=== PATIENT | female | born 1950 | race Caucasian/White ===

== ENCOUNTER 2016-05-19 11:57 | Inpatient (IN) | payer MEDICARE, OTHER ==
[2016-05-19] VITALS (446 sets, daily range): BP systolic 140–176; BP diastolic 68–89; PULSE 56–65; TEMP 98–98.3; O2SAT 92–100
[~2016-05-19] VITALS: Ht 167.6 cm; Wt 127.8 kg
[2016-05-19] MEDS ORDERED: CELEBREX 200MG200 MG PO (14:27)
[2016-05-19] MEDS ORDERED: B-12 500 MCG PO (14:27)
[2016-05-19] MEDS ORDERED: LIDEX CR 15GM TP (14:28)
[2016-05-19] MEDS ORDERED: ULTRAM 50MG TAB50 MG PO (14:28)
[2016-05-19] MEDS ORDERED: OCUVITE1 TA1 PO (14:29)
[2016-05-19] MEDS ORDERED: CELEXA40 MG PO (14:29)
[2016-05-19] MEDS ORDERED: COREG 25MG25 MG/TAB PO (14:31)
[2016-05-19] MEDS ORDERED: AVAPRO300 M1 PO (14:31)
[2016-05-19] MEDS ORDERED: VITAMIN D 50,1.25 MG PO (14:32)
[2016-05-19] MEDS ORDERED: LASIX 20MG TABL20 MG PO (14:33)
[2016-05-19] MEDS ORDERED: ALDACTONE 25MG25 M1 PO (14:33)
[2016-05-19] MEDS ORDERED: GLUCOPHAGE XR500 M1 PO (14:34)
[2016-05-19] MEDS ORDERED: VITAMIN D32000 I1 PO (18:31)
[2016-05-19] MEDS ORDERED: COREG12.5 MG PO (18:31)
[2016-05-19] MEDS ORDERED: CELEXA 20MG20 MG/TAB PO (18:32)
[2016-05-20] VITALS (832 sets, daily range): BP systolic 131–187; BP diastolic 52–90; PULSE 58–65; TEMP 97.9–98.2; O2SAT 85–100
[2016-05-20 05:53] LABS: MEAN CELL VOLUME 93 fl (80.0-100.0); MEAN CORPUSCULAR HEMOGLOBIN 32 pg (27.0-31.0); MEAN CORPUSCULAR HGB CONC 34 g/dl (33.0-37.0); MEAN PLATELET VOLUME 11.3 fl (7.4-10.4); PLATELET COUNT 168 K/mm3 (130-400); REDCELL DISTRIBUTION WIDTH-CV 12.5 % (11.5-14.5); WHITE BLOOD COUNT 8.2 K/mm3 (4.8-10.8)
[2016-05-20 05:57] LABS: INR 1.2 (0.8-3.0); PROTHROMBIN TIME 13.3 SECONDS (9.7-12.8)
[2016-05-20 06:01] LABS: CALCIUM 9.2 mg/dL (8.4-10.2); CREATININE, serum 0.93 mg/dL (0.52-1.25); POTASSIUM 3.8 mmol/L (3.4-5.0)
[2016-05-21] VITALS (362 sets, daily range): BP systolic 130–163; BP diastolic 50–76; PULSE 54–62; TEMP 97.8–98.7; O2SAT 41–100
[2016-05-21 06:26] LABS: BASO % 0.1 % (0.0-2.0); EOS % 0.1 % (0-4.0); GRAN # 10.1 (1.4-6.5); GRAN % 81.4 % (42.2-75.2); HEMOGLOBIN 14.4 g/dl (12.5-16.0); LYMPH # 1.5 (1.2-3.4); LYMPH % 11.8 % (20.0-51.0); MEAN CELL VOLUME 92 fl (80.0-100.0); MEAN CORPUSCULAR HEMOGLOBIN 31 pg (27.0-31.0); MEAN CORPUSCULAR HGB CONC 34 g/dl (33.0-37.0); MEAN PLATELET VOLUME 10.9 fl (7.4-10.4); MONO # 0.7 (0.1-0.6); PLATELET COUNT 180 K/mm3 (130-400); RED BLOOD COUNT 4.58 M/mm3 (4.10-5.30); REDCELL DISTRIBUTION WIDTH-CV 12.1 % (11.5-14.5); WHITE BLOOD COUNT 12.4 K/mm3 (4.8-10.8)
[2016-05-21 06:33] LABS: CALCIUM 9.4 mg/dL (8.4-10.2); CREATININE, serum 0.87 mg/dL (0.52-1.25); POTASSIUM 4.1 mmol/L (3.4-5.0)
[2016-05-21] MEDS ORDERED: PLAVIX 75MG TAB75 MG PO (10:05)
== END 2016-05-21 10:53 | disposition home or self-care (01) | DRG 247 ==
LOC: IMCU 11:57
PROVIDERS: Internal Medicine; Internal Medicine Interventional Cardiology
PROC: B2111ZZ Fluoroscopy of Multiple Coronary Arteries using Low Osmolar Contrast (ICD-10-PCS; principal; 2016-05-20)
PROC: 027034Z Dilation of Coronary Artery, One Artery with Drug-eluting Intraluminal Device, Percutaneous Approach (ICD-10-PCS; 2016-05-20)
PROC: B2151ZZ Fluoroscopy of Left Heart using Low Osmolar Contrast (ICD-10-PCS; 2016-05-20)
PROC: 4A023N7 Measurement of Cardiac Sampling and Pressure, Left Heart, Percutaneous Approach (ICD-10-PCS; 2016-05-20)
DX: I25.119 Atherosclerotic heart disease of native coronary artery with unspecified angina pectoris (principal); I50.22 Chronic systolic (congestive) heart failure; I49.5 Sick sinus syndrome; I11.0 Hypertensive heart disease with heart failure; E11.9 Type 2 diabetes mellitus without complications; Z87.891 Personal history of nicotine dependence
CPT/HCPCS: 99223-AI; 99232-AI; 99238; C1725; C1760; C1769; C1874; C1887; C1894; C9600; J0583; J1650; J1815; J2250; J2930; J3010; Q9967

== ENCOUNTER → 2016-09-23 | Outpatient (CLI) | payer MEDICARE, OTHER ==
[~2016-09-23] MED LIST: ALDACTONE 25MG25 M1 PO; AVAPRO300 M1 PO; B-12 500 MCG PO; CELEBREX 200MG200 MG PO; CELEXA 20MG20 MG/TAB PO; CELEXA40 MG PO; COREG 25MG25 MG/TAB PO; COREG12.5 MG PO; GLUCOPHAGE XR500 M1 PO; LASIX 20MG TABL20 MG PO; LIDEX CR 15GM TP; OCUVITE1 TA1 PO; PLAVIX 75MG TAB75 MG PO; ULTRAM 50MG TAB50 MG PO; VITAMIN D 50,1.25 MG PO; VITAMIN D32000 I1 PO
== END ==
LOC: COL.RAD 12:25
DX: M25.511 Pain in right shoulder (principal); M19.011 Primary osteoarthritis, right shoulder; M85.811 Other specified disorders of bone density and structure, right shoulder; S43.401A Unspecified sprain of right shoulder joint, initial encounter; M25.411 Effusion, right shoulder; M75.111 Incomplete rotator cuff tear or rupture of right shoulder, not specified as traumatic

== ENCOUNTER → 2016-10-06 | Outpatient (CLI) | payer MEDICARE, OTHER | LOC: COL.RAD 12:57 | DX: M25.78 Osteophyte, vertebrae (principal) ==

== ENCOUNTER 2017-06-02 12:27 | Outpatient (CLI) | payer MEDICARE, OTHER ==
[~2017-06-02] VITALS: Ht 167.7 cm; Wt 139.0 kg
[2017-06-02] VITALS (10 sets, daily range): BP systolic 126–179; BP diastolic 58–89; PULSE 53–73; TEMP 97.6–98.1
[~2017-06-02 12:27] MED LIST changes: +VITAMIN D31000 I1 PO; -VITAMIN D32000 I1 PO
[2017-06-02] MEDS ORDERED: PERCOCET 325 MG1 TA2 PO (13:33)
[2017-06-02 13:54] LABS: HEMOGLOBIN 13.3 g/dl (12.5-16.0); MEAN CELL VOLUME 94 fl (80.0-100.0); MEAN CORPUSCULAR HEMOGLOBIN 31 pg (27.0-31.0); MEAN CORPUSCULAR HGB CONC 33 g/dl (33.0-37.0); PLATELET COUNT 157 K/mm3 (130-400); RED BLOOD COUNT 4.27 M/mm3 (4.10-5.30); REDCELL DISTRIBUTION WIDTH-CV 12.5 % (11.5-14.5)
[2017-06-02] MEDS ORDERED: LEVEMIR100 U/ML SQ (13:55)
[2017-06-02] MEDS ORDERED: CELEBREX 200MG200 MG PO (13:55)
[2017-06-02] MEDS ORDERED: COREG 3.123.125 MG/T PO (13:56)
[2017-06-02] MEDS ORDERED: TRUSOPT OCUMETE10 ML OU (13:57)
[2017-06-02] MEDS ORDERED: ASPIRIN E.C. 8181 MG PO (13:58)
[2017-06-02 14:05] LABS: CALCIUM 9.5 mg/dL (8.4-10.2); CREATININE, serum 0.77 mg/dL (0.52-1.25); INR 1.1 (0.8-3.0); POTASSIUM 4.1 mmol/L (3.4-5.0); PROTHROMBIN TIME 13.1 SECONDS (9.7-12.8)
[2017-06-02] MEDS ORDERED: COREG 6.256.25 MG/TA PO (15:45)
== END 2017-06-02 16:50 | disposition home or self-care (01) ==
LOC: COL.RAD 12:27
PROVIDERS: Internal Medicine Interventional Cardiology
DX: I34.0 Nonrheumatic mitral (valve) insufficiency (principal); I50.22 Chronic systolic (congestive) heart failure; I25.10 Atherosclerotic heart disease of native coronary artery without angina pectoris; I87.2 Venous insufficiency (chronic) (peripheral); Z87.891 Personal history of nicotine dependence; Z98.1 Arthrodesis status; Z98.890 Other specified postprocedural states
CPT/HCPCS: G9654; J2250; J2704

== ENCOUNTER 2018-02-27 09:53 | Day surgery (SDC) | payer MEDICARE, OTHER ==
[~2018-02-27] VITALS: Ht 167.7 cm; Wt 152.2 kg
[2018-02-27] VITALS (9 sets, daily range): BP systolic 89–1222; BP diastolic 59–83; PULSE 62–67; TEMP 97.4
[~2018-02-27 09:53] MED LIST changes: +ASPIRIN E.C. 8181 MG PO; +COREG 3.123.125 MG/T PO; +COREG 6.256.25 MG/TA PO; +ENTRESTO 49 MG1 EACH PO; +LEVEMIR100 U/ML SQ; +PERCOCET 325 MG1 TA2 PO; +ROXICODONE 55 MG/TAB PO; +TRUSOPT OCUMETE10 ML OU
[2018-02-27 11:11] LABS: HEMATOCRIT 34.9 % (37.0-47.0); HEMOGLOBIN 11.2 g/dl (12.5-16.0); MEAN CELL VOLUME 99 fl (80.0-100.0); MEAN CORPUSCULAR HEMOGLOBIN 32 pg (27.0-31.0); MEAN CORPUSCULAR HGB CONC 32 g/dl (33.0-37.0); MEAN PLATELET VOLUME 10.3 fl (7.4-10.4); PLATELET COUNT 151 K/mm3 (130-400); RED BLOOD COUNT 3.53 M/mm3 (4.10-5.30); REDCELL DISTRIBUTION WIDTH-CV 13.3 % (11.5-14.5)
[2018-02-27] MEDS ORDERED: ACTOS30 MG PO (11:11)
[2018-02-27] MEDS ORDERED: DESYREL 100MG100 MG PO (11:11)
[2018-02-27] MEDS ORDERED: TRULICITY0.75 MG/0. SQ (11:12)
[2018-02-27 11:17] LABS: INR 1.1 (0.8-3.0)
[2018-02-27 11:21] LABS: CREATININE, serum 1.63 mg/dL (0.52-1.25); POTASSIUM 4.8 mmol/L (3.4-5.0)
== END 2018-02-27 16:12 | disposition home or self-care (01) ==
LOC: COL.CAR 09:53
PROVIDERS: Internal Medicine Interventional Cardiology
DX: I25.10 Atherosclerotic heart disease of native coronary artery without angina pectoris (principal); R94.39 Abnormal result of other cardiovascular function study; E11.9 Type 2 diabetes mellitus without complications; E78.5 Hyperlipidemia, unspecified; I50.9 Heart failure, unspecified; Z79.4 Long term (current) use of insulin; Z79.02 Long term (current) use of antithrombotics/antiplatelets; Z79.82 Long term (current) use of aspirin; Z88.1 Allergy status to other antibiotic agents; Z88.8 Allergy status to other drugs, medicaments and biological substances; Z87.891 Personal history of nicotine dependence; Z84.1 Family history of disorders of kidney and ureter; Z80.9 Family history of malignant neoplasm, unspecified; Z82.49 Family history of ischemic heart disease and other diseases of the circulatory system
CPT/HCPCS: C8924; J1644; J2250; J3010; Q9957; Q9967

== ENCOUNTER 2018-11-21 19:17 | Inpatient (IN) | payer MEDICARE, OTHER ==
[~2018-11-21] VITALS: Ht 165.1 cm; Wt 161.1 kg
[~2018-11-21 19:17] MED LIST changes: +ACTOS30 MG PO; +DESYREL 100MG100 MG PO; +TRULICITY0.75 MG/0. SQ
--- NOTE | 2018-11-21 19:45 | NUR ---
To room 224 via EMS harvinderr[facility] from [facility]. Transferred with assist of 6. Oriented to room and policy. Admission assessment complete-see note. Right knee dressing with small amount of drainage noted-Gallito bandage/4x4s/ABDs. Elevated on pillow. Ice pack applied. NELA hose on when arrived. Denies pain at this time stating she had "pain medications at [facility]." Call light in reach, bed in low position/wheels locked. Will monitor.
[2018-11-21 20:06] VITALS: BP 123/57; PULSE 64; TEMP 98.1
--- NOTE | 2018-11-21 20:50 | NUR ---
Chadd Kramer CRNA in room to evaluate for anesthesia. Asked by this nurse if he would evaluate for IV placement-had been stuck seven times prior to arrival to [facility]. IV placed in left forearm, 20g, by Krista Kramer CRNA using ultrasound. Flushed without difficulty. re-enforced with chevron and extra tape. Wrapped with loose mike bandage. Tolerated procedure well.
--- NOTE | 2018-11-21 22:50 | NUR ---
[facility] what medications were taken prior to discharge this AM. Spoke to Nurse who faxed MAR and provided medications, date and time. Updated on Med rec accordingly
[2018-11-21 23:15] VITALS: BP 124/34; PULSE 71; TEMP 98
--- NOTE | 2018-11-21 23:40 | NUR ---
New orders received to insert carey cath. 16F inserted using sterile technique with immediate return of dark yellow clear urine. Tolerated well
[2018-11-22] VITALS (12 sets, daily range): BP systolic 117–147; BP diastolic 36–78; PULSE 59–85; TEMP 97.8–99.2
--- NOTE | 2018-11-22 | NUR ---
Assisted with CPAP mask. Adjusted to fit-states proper application but removes in sleep. Cardiopulm aware. O2 at 3l/NC instead.
--- NOTE | 2018-11-22 03:08 | NUR ---
Has slept since arrival. No C/O pain. right lower extremity repositioned on pillow several times-continues to externally rotate right leg. Ice pack applied several times but removes. Dressing remains with a small amount of drainage to mike. Call light within reach. Will monitor.
[2018-11-22 06:40] LABS: BASO % 0.2 % (0.0-2.0); EOS # 0.3 (0.0-0.7); EOS % 3.7 % (0-4.0); GRAN % 65.8 % (42.2-75.2); HEMOGLOBIN 10.4 g/dl (12.5-16.0); LYMPH # 1.6 (1.2-3.4); LYMPH % 17.1 % (20.0-51.0); MEAN CELL VOLUME 98 fl (80.0-100.0); MEAN CORPUSCULAR HEMOGLOBIN 31 pg (27.0-31.0); MEAN CORPUSCULAR HGB CONC 32 g/dl (33.0-37.0); MEAN PLATELET VOLUME 10.9 fl (7.4-10.4); MONO # 1.2 (0.1-0.6); MONO % 12.8 % (1.7-9.3); PLATELET COUNT 131 K/mm3 (130-400); RED BLOOD COUNT 3.33 M/mm3 (4.10-5.30); REDCELL DISTRIBUTION WIDTH-CV 13.8 % (11.5-14.5)
[2018-11-22 06:41] LABS: HEMATOCRIT 32.5 % (37.0-47.0)
--- NOTE | 2018-11-22 08:00 | NUR ---
PATIENT RESTING IN BED THIS MORNING. PATIENT IS A&OX4. VSS. PATIENT PALE IN COLORING. BOWEL SOUNDS ACTIVE ALL FOUR QUADRANTS. PATIENT IS NPO FOR SURGERY. PATIENT DENIES COMPLAINTS OF N/V. POSITIVE PEDAL PULSES EQUAL BILATERALLY. EDEMA TO RLE.JANELL DRESSING TO RIGHT KNEE AND IS CD&I. NELA HOSE TO BLE. HUNG CATHETER DRAINAGE YELLOW URINE TO HUNG BAG. LEFT FOREARM TO INT. CALL LIGHT WITHIN REACH. PATINT DENIES ANY OTHER NEEDS AT THIS TIME.
--- NOTE | 2018-11-22 09:51 | NUR ---
Initial visit; "Kristian" thanked Desk Editor for looking in on her, offering God's blessings and keeping her in Desk Editor's prayers.
--- NOTE | 2018-11-22 10:50 | NUR ---
PRE-OP FLUIDS HUNG AND CONNECTED TO LEFT FOREARM IV. PATIENT TAKEN TO PERIOP VIA BED BY VERNA MENG.
--- NOTE | 2018-11-22 13:00 | NUR ---
PATIENT ARRIVED TO ROOM 324 VIA BED FROM PACU. PATIENT IS DROWSY, BUT AROUSES TO NAME. VSS. NELA HOSE TO BLE. SCD TO LLE. CALL LIGHT WITHIN REACH. PRESENT AT THE BEDSIDE.
--- NOTE | 2018-11-22 14:29 | NUR ---
MAHOGANY met with the patient and patient's , Brain, to discuss discharge plan. The patient discharged yesterday, 11/21, from the [facility] after having a right TKA. She states that things were not going well. The patient lives in [place] with her . She reports needing assistance with ADLs and has a front wheeled walker. She states her has been helping her with ADLs. The patient's PCP is Dr. Aleks Palacios and she receives her medications from the [facility] in [place]. She reports no difficulties obtaining her meds. The patient does not have advanced directives and she was not interested in completing them at this time. The patient reports that she does not feel comfortable returning home and would be interested in rehab. MAHOGANY presented and explained the patient choice form to the patient and patient's . The patient preferred 1) [facility] 2) [facility]. Patient choice form signed by the patient's and he was provided a copy. MAHOGANY contacted and faxed a referral to both facilities. Alyssa, at [facility], reports since the patient does not have a PCP there, she will need updates and will see if the provider restoration ecologist the day she discharges will accept her. MAHOGANY to inform the patient and patient's . MAHOGANY awaiting [facility] screening.
--- NOTE | 2018-11-22 19:07 | NUR ---
REPORT GIVEN TO VERNA SEE.
--- NOTE | 2018-11-22 19:30 | NUR ---
Report received. 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 Assessment complete. VS have remained stable. Very drowsy falling asleep during assessment. Dressing to left knee-bulky white with mike bandage covering-C/D/I. Swelling to both lower extremitites with +2 pitting edema. Bilateral upper extremeties with +2 edema as well. Infante cath to dependent drainage-light yellow clear urine. Fresh ice pack to right knee. Refusing elevation and straightening of that extremity. Teaching complete on importance of proper alignment. Encouraged ankle pumps. Plan of care discussed for pain control and turning every two hours. Verbalizes understanding. Call light within reach, bed in low position/wheels locked. Will monitor.
[2018-11-23 00:25] VITALS: BP 153/59; PULSE 87; TEMP 98.5
--- NOTE | 2018-11-23 02:45 | NUR ---
Repositioned at this time. C/O pain to right knee/thigh rating 5/10 described as constant ache with stabbing. [place] given per dr order. Pillow underneath right lower extremity-refusing to keep proper alignment. Completed some ankle pumps. Refusing ice pack at this time. Will monitor.
--- NOTE | 2018-11-23 03:20 | NUR ---
C/O pain to right knee. States Ridgeway given at 0245 hasnt helped. Ridgeway 1 tab given in addition. Repostioned with pillow support as well as fresh ice pack. Still rating pain 5/10 to right knee. Will monitor effectiveness of second dose.
[2018-11-23 03:28] VITALS: BP 147/56; PULSE 64; TEMP 98.1
[2018-11-23 07:38] VITALS: BP 154/69; PULSE 67; TEMP 98.3
--- NOTE | 2018-11-23 08:00 | NUR ---
PATIENT IS DROWSY AND RESTING IN BED THIS MORNING. PATIENT IS A&OX4. UPPER LUNG LOBES CLEAR UPON AUSCULTATION. LUNG BASES DIMINISHED BILATERALLY. VSS. PATIENT PALE IN COLORING. BOWEL SOUNDS ACTIVE ALL FOUR QUADRANTS. PATIENT TOLERATING DIET AND DENIES COMPLAINTS OF N/V. POSITIVE PEDAL PULSES EQUAL BILATERALLY. 1+ PITTING-EDEMA TO BLE. JANELL DRESSING TO RIGHT KNEE AND IS CD&I. NELA HOSE AND SCD TO LLE. HUNG CATHETER DRAINAGE YELLOW, HAZY URINE TO HUNG BAG. LEFT FOREARM TO INT. CALL LIGHT WITHIN REACH. PATINT DENIES ANY OTHER NEEDS AT THIS TIME.
[2018-11-23 08:08] LABS: BASO % 0.2 % (0.0-2.0); EOS # 0.3 (0.0-0.7); EOS % 3.5 % (0-4.0); GRAN # 5.8 (1.4-6.5); GRAN % 66.4 % (42.2-75.2); LYMPH # 1.6 (1.2-3.4); LYMPH % 18.1 % (20.0-51.0); MEAN CELL VOLUME 98 fl (80.0-100.0); MEAN CORPUSCULAR HEMOGLOBIN 30 pg (27.0-31.0); MEAN CORPUSCULAR HGB CONC 31 g/dl (33.0-37.0); MEAN PLATELET VOLUME 10.7 fl (7.4-10.4); MONO % 11.3 % (1.7-9.3); PLATELET COUNT 157 K/mm3 (130-400); RED BLOOD COUNT 3.29 M/mm3 (4.10-5.30); REDCELL DISTRIBUTION WIDTH-CV 13.7 % (11.5-14.5)
[2018-11-23 08:12] LABS: HEMATOCRIT 32.1 % (37.0-47.0)
[2018-11-23 12:06] VITALS: BP 106/55; PULSE 64; TEMP 98.8
--- NOTE | 2018-11-23 13:00 | NUR ---
PATIENT'S HUNG CATHETER DISCONTINUED PER ORDERS. 9 MLS OF STERILE WATER ASPIRATED FROM BALLOON. TIP INTACT. STEPHIE CARE PROVIDED. PATIENT TOLERATED WELL.
--- NOTE | 2018-11-23 15:00 | NUR ---
Melisa, at [facility], reports that they are unable to accept the patient. SW to inform the patient and patient's and will continue to follow.
--- NOTE | 2018-11-23 15:16 | NUR ---
MAHOGANY met with the patient and her to update on referrals. The patient reports that her PCP is in [place] and that she would be interested in a facility there, if [facility] cannot accept. The patient preferred 2) [facility] [facility] 3) [facility] [place]. MAHOGANY contacted and faxed a referral to Loyda at [place] [facility]. MAHOGANY attempted to contact Fela at [facility]. MAHOGANY faxed [facility] a referral. SW awaiting their screenings.
[2018-11-23 16:19] VITALS: BP 134/55; PULSE 71; TEMP 98.9
--- NOTE | 2018-11-23 19:25 | NUR ---
Report received from Belia GILLESPIE. Pt up to chair. No distress noted. Pt denies needs.
--- NOTE | 2018-11-23 19:27 | NUR ---
REPORT GIVEN TO VERNA WEBBER.
--- NOTE | 2018-11-23 19:55 | NUR ---
Pt assisted [place] [facility] [place]. Pt to bed after voiding clear, yellow urine. Pt becomes dyspneic on exertion. Lungs clear, bases diminished. Abdomen soft, nontender. BS+. Pulses equal bilaterally, 1+ pedal. 1+ edema in BLE. R knee wrapped with JANELL- CDI. R knee elevated and Ice applied. Pt c/o pain 10/10 in R knee after exertion. Will medicate with PRN pain medication. L FA INT. SCD applied to L leg. No other needs noted. Will continue to monitor.
[2018-11-23 20:14] VITALS: BP 120/42; PULSE 68; TEMP 98.4
--- NOTE | 2018-11-23 20:43 | NUR ---
Pt resting. Family at bedside. Pt reports that pain is starting to decrease. No needs at this time.
[2018-11-24] VITALS (8 sets, daily range): BP systolic 89–131; BP diastolic 38–51; PULSE 50–64; TEMP 97.7–98.5
--- NOTE | 2018-11-24 06:28 | NUR ---
Pt sleeping in chair this AM. No distress. Pt has been awake many times throughout the night to void. Transferring to [facility] without difficulty. Dr. Valdez at bedside to remove dressing and place aquacell.
--- NOTE | 2018-11-24 06:34 | NUR ---
Pt c/o pain 5/10 in r knee. PRN pain medication given. Pt ordering breakfast in chair. No other needs noted.
[2018-11-24 08:25] LABS: BASO % 0.3 % (0.0-2.0); EOS # 0.3 (0.0-0.7); EOS % 4.3 % (0-4.0); GRAN # 4.8 (1.4-6.5); GRAN % 61.7 % (42.2-75.2); HEMOGLOBIN 10.7 g/dl (12.5-16.0); LYMPH # 1.7 (1.2-3.4); LYMPH % 21.6 % (20.0-51.0); MEAN CELL VOLUME 96 fl (80.0-100.0); MEAN CORPUSCULAR HEMOGLOBIN 31 pg (27.0-31.0); MEAN CORPUSCULAR HGB CONC 32 g/dl (33.0-37.0); MEAN PLATELET VOLUME 10.8 fl (7.4-10.4); MONO # 0.9 (0.1-0.6); MONO % 11.6 % (1.7-9.3); PLATELET COUNT 102 K/mm3 (130-400); RED BLOOD COUNT 3.47 M/mm3 (4.10-5.30); REDCELL DISTRIBUTION WIDTH-CV 13.9 % (11.5-14.5)
[2018-11-24 10:15] LABS: HEMATOCRIT 33.2 % (37.0-47.0)
--- NOTE | 2018-11-24 18:43 | NUR ---
Patient has rested intermittently during the shift. Patient has been up to chair, to bed, and ambulating with therapy today. Administered PRN pain medication twice per request. Patient was continent of bowel and bladder. Aquacel on right knee is intact, very small area of drainage can be observed. Patient denies needs at this time, call light within reach.
[2018-11-25 03:50] VITALS: BP 123/44; PULSE 62; TEMP 98.1
--- NOTE | 2018-11-25 04:37 | NUR ---
PT HAS BEEN MEDICATED TWICE FOR KNEE DISCOMFORT. PT PREFERS TO USE COMMODE RATHER THAN AMBULATE TO TOILET.
[2018-11-25 08:00] VITALS: BP 160/58; PULSE 60; TEMP 97.5
[2018-11-25 12:04] VITALS: BP 130/48; PULSE 58; TEMP 97.7
[2018-11-25 16:49] VITALS: BP 134/43; PULSE 63; TEMP 98.2
--- NOTE | 2018-11-25 16:51 | NUR ---
Patient has rested intermittently during the day, has moved from bed to chair and toileted at bedside commode. Patient remains alert and oriented, answers questions appropriately. Patient continues to the the assistance of one to move and transfer with the use of a gaitbelt and walker. Patient has requested PRN pain medication for pain in her right knee, pain medication given per orders. Patient has denied further needs, call light within reach.
[2018-11-25 19:35] VITALS: BP 116/46; PULSE 62; TEMP 97.8
[2018-11-26 00:10] VITALS: BP 98/40; PULSE 68; TEMP 98.2
[2018-11-26 04:18] VITALS: BP 135/60; PULSE 68; TEMP 97.9
--- NOTE | 2018-11-26 05:38 | NUR ---
STANDBY ASSIST TO TRANSFER TO [facility]. PT MEDICATED WITH OXYCODONE AND NORCO FOR RLE PAIN. AQUACEL WITH SCANT DRAINAGE NOTED.
[2018-11-26 07:36] VITALS: BP 137/52; PULSE 62; TEMP 97.8
--- NOTE | 2018-11-26 08:00 | NUR ---
PATIENT IS A&O. VSS. RATES PAIN IN RLE AT 5-6 ON PAIN SCALE. PATIENT SITTING UP BEDSIDE CHAIR WITH BREAKFAST TRAY. AM BS WAS 78. AM MED GIVEN WITH BREAKFAST. HEAD TO TOE ASSESSMENT WNL. RLE NOTED SMALL AMOUNTS OF BLOODY DRAINAGE TO AQUACEL. NO C/O N/V. LEFT FORARM IV TO INT. PATIENT PLANNING ON DISCHARGE SWB LATER TODAY. NO OTHER NEEDS AT THIS TIME. CALL LIGHT IN REACH.
--- NOTE | 2018-11-26 09:19 | NUR ---
MAHOGANY contacted Loyda from [facility]. MAHOGANY unable to speak with Loyda. MAHOGANY left a message. MAHOGANY spoke with Dianne and they report the referral is being reviewed this morning.
--- NOTE | 2018-11-26 09:49 | NUR ---
MAHOGANY spoke to Loyda from [facility]. She reports Dr Jon will review the referral and Loyda will call MAHOGANY back. MAHOGANY met with patient to update her on the status of the referrals. MAHOGANY also presented IM to patient. She signed and was provided a copy.
--- NOTE | 2018-11-26 10:43 | NUR ---
Patient was accepted to [facility]. MAHOGANY informed patient and nurse. Patient's will provide transportation at 1pm. MAHOGANY faxed discharge orders.
[2018-11-26 11:54] VITALS: BP 150/52; PULSE 62; TEMP 98.2
--- NOTE | 2018-11-26 13:15 | NUR ---
PATIENT DISCHARING VIA WHEELCHAIR TO PERSONAL VEHICLE WITH TO GO TO [facility]. DC'D LEFT FORARM IV, COVERED SITE WITH GAUZE & COBAN. APPLIED NEW AQUACEL DRESSING TO RLE. GAVE DISCHARGE INFO PACKET TO . CALLED REPORT TO [facility] RN. PATIENT DISCHARGED.
== END 2018-11-26 13:15 | disposition swing bed (61) | DRG 908 ==
LOC: MEDICAL 19:17 → SURG 19:58
PROVIDERS: Orthopaedic Surgery; ADMIT Orthopaedic Surgery Sports Medicine
PROC: 0QDB0ZZ Extraction of Right Lower Femur, Open Approach (ICD-10-PCS; principal; 2018-11-22 12:00)
DX: T81.32XA Disruption of internal operation (surgical) wound, not elsewhere classified, initial encounter (principal); Z68.43 Body mass index [BMI] 50.0-59.9, adult; M19.90 Unspecified osteoarthritis, unspecified site; E11.9 Type 2 diabetes mellitus without complications; I11.0 Hypertensive heart disease with heart failure; Z96.651 Presence of right artificial knee joint; I50.9 Heart failure, unspecified; Z98.1 Arthrodesis status; Z87.891 Personal history of nicotine dependence; Z79.4 Long term (current) use of insulin; Z79.82 Long term (current) use of aspirin; Z79.02 Long term (current) use of antithrombotics/antiplatelets; E66.9 Obesity, unspecified; W19.XXXA Unspecified fall, initial encounter; Y93.89 Activity, other specified; Y92.009 Unspecified place in unspecified non-institutional (private) residence as the place of occurrence of the external cause
CPT/HCPCS: A4314; A9284; J0690; J1170; J1815; J2405; J2704; J3010; J7030; J7040